=== PATIENT | female | born 1995 | race Caucasian/White ===

== ENCOUNTER 2016-05-15 17:16 | Emergency (ER) | payer MEDICAID, OTHER ==
[2016-05-15 18:10] LABS: RBC URINE 14 /hpf (0-3); URINE BACTERIA MOD (<OCC); URINE BILIRUBIN NEGATIVE (NEGATIVE); URINE BLOOD 2+ (NEGATIVE); URINE COLOR Yellow (YELLOW); URINE GLUCOSE (UA) NORMAL (Normal); URINE KETONE NEGATIVE (NEGATIVE); URINE LEUKOCYTE ESTERASE 3+ Leu/uL (Negative); URINE PROTEIN 1+ mg/dL (NEGATIVE); URINE UROBILINOGEN NORMAL mg/dL (0.2-1.0); WBC CLUMPS FEW /hpf; WBC URINE 269 /hpf (0-5)
[2016-05-15] MEDS ORDERED: Sodium Chloride 0.9% 1,000 ML IV ONE (19:27)
[2016-05-15] MEDS ORDERED: Sodium Chloride 0.9% 1,000 ML ONE (19:46)
[2016-05-15 19:52] LABS: BASO # 0.1 K/uL (0.0-0.2); BASO % 0.3 % (0.0-2.0); EOS % 0.1 % (0.0-4.0); HEMATOCRIT 38.1 % (34.0-47.0); LYMPH # 1.9 K/uL (1.0-4.3); MEAN CELL VOLUME 81.9 fL (81.0-99.0); MEAN CORPUSCULAR HEMOGLOBIN 26.5 pg (27.0-31.0); MEAN CORPUSCULAR HGB CONC 32.3 g/dL (33.0-37.0); MEAN PLATELET VOLUME 9.3 fL (7.2-11.7); MONO % 5.3 % (0.0-10.0); RED CELL DISTRIBUTION WIDTH 13.3 % (11.5-14.5); WHITE BLOOD COUNT 18.7 K/uL (4.8-10.8)
[2016-05-15 20:04] LABS: CHLORIDE 98 mmol/L (98-107); POTASSIUM 4.2 mmol/L (3.6-5.2); SODIUM 140 mmol/L (132-148)
[2016-05-15 20:06] LABS: BILIRUBIN,TOTAL 0.7 mg/dL (0.2-1.3); GFR AFRICAN-AMERICAN > 60
[2016-05-15 20:07] LABS: ALB/GLOB RATIO 1.2 (1.0-2.1); ALKALINE PHOSPHATASE 81 U/L (38-126); ALT/SGPT 13 U/L (9-52); AST/SGOT 22 U/L (14-36); BLOOD UREA NITROGEN 6 mg/dL (7-17); CALCIUM 9.3 mg/dl (8.6-10.4); CARBON DIOXIDE 23 mmol/L (22-30); GLUCOSE,RANDOM 85 mg/dL (65-105); TOTAL PROTEIN 8.6 g/dL (6.3-8.3)
[2016-05-15 21:05] VITALS: RESP 18
--- NOTE | 2016-05-15 21:10 | CT ---
EXAM: CT Abdomen and Pelvis Without Intravenous Contrast. CLINICAL HISTORY: 20 years old, female; Pain; Abdominal pain; Flank; Right; Additional info: Rlq/right flank pain TECHNIQUE: Axial computed tomography images of the abdomen and pelvis without intravenous contrast. This CT exam was performed using one or more of the following dose reduction techniques: automated exposure control, adjustment of the mA and/or kV according to patient size, and/or use of iterative reconstruction technique. Coronal and sagittal reformatted images were created and reviewed. COMPARISON: CR - ABDOMEN (FLAT PLATE) 1VIEW 12/26/2014 4:44:02 AM FINDINGS: Lower thorax: No acute findings. ABDOMEN: Liver: Unremarkable. Gallbladder and bile ducts: No calcified stones. No ductal dilation. Pancreas: Unremarkable. No ductal dilation. Spleen: No splenomegaly. Adrenals: No mass. Kidneys and ureters: No renal calculi. No hydronephrosis. Stomach and bowel: No definite mural thickening. No obstruction. Appendix: No definite findings to suggest acute appendicitis. PELVIS: Bladder: Unremarkable. No stones. Reproductive: Unremarkable as visualized. ABDOMEN and PELVIS: Intraperitoneal space: Small free fluid within pelvis. No free air. Bones/joints: No acute fracture. Soft tissues: Unremarkable. Vasculature: Unremarkable. No abdominal aortic aneurysm. Lymph nodes: No pathologically enlarged lymph nodes. IMPRESSION: 1. No CT evidence of urolithiasis. 2. Incidental/non-acute findings are described above.
--- NOTE | 2016-05-15 21:52 | C.PDOC ---
Time Seen by Provider: 05/15/16 19:19 Chief Complaint (Nursing): Abdominal Pain History Per: Patient, Family Onset/Duration Of Symptoms: Days (3), Waxing/Waning Current Symptoms Are (Timing): Still Present Severity: Moderate Location Of Pain/Discomfort: RUQ, RLQ Radiation Of Pain To:: Back, Flank Quality Of Discomfort: "Pain" Associated Symptoms: Nausea Exacerbating Factors: None Alleviating Factors: None Additional History Per: Prior Records Past Medical History Reviewed: Historical Data, Nursing Documentation, Vital Signs Vital Signs: Last Vital Signs Temp 98.3 F 05/15/16 21:03 Pulse 104 H 05/15/16 21:03 Resp 18 05/15/16 21:03 BP 105/63 05/15/16 21:03 Pulse Ox 100 05/15/16 21:03 - Medical History PMH: No Chronic Diseases Surgical History: No Surg Hx Family History: States: Unknown Family Hx - Social History Hx Tobacco Use: No Hx Alcohol Use: No Hx Substance Use: No - Immunization History Hx Tetanus Toxoid Vaccination: No Hx Influenza Vaccination: No Hx Pneumococcal Vaccination: No Review Of Systems Except As Marked, All Systems Reviewed And Found Negative. Constitutional: Negative for: Fever, Weakness Cardiovascular: Negative for: Chest Pain Respiratory: Negative for: Shortness of Breath Gastrointestinal: Positive for: Abdominal Pain. Negative for: Vomiting, Diarrhea Genitourinary: Positive for: Frequency. Negative for: Vaginal Discharge, Vaginal Bleeding Musculoskeletal: Positive for: Back Pain. Negative for: Neck Pain Skin: Negative for: Rash Neurological: Negative for: Weakness, Numbness, Seizures, Altered Mental Status Physical Exam - Physical Exam Appears: Non-toxic, No Acute Distress Skin: Normal Color, Warm, Dry, No Rash Head: Atraumatic, Normacephalic Eye(s): bilateral: PERRL, EOMI Neck: Normal ROM, Supple Cardiovascular: Rhythm Regular Respiratory: Normal Breath Sounds, No Accessory Muscle Use Gastrointestinal/Abdominal: Soft, Tenderness (mild right sided), No Distention, No Guarding, No Rebound Back: CVA Tenderness (right) Extremity: Normal ROM Neurological/Psych: Oriented x3, Normal Motor, Normal Sensation ED Course And Treatment - Laboratory Results Result Diagrams: 05/15/16 19:46 05/15/16 19:46 Lab Interpretation: Abnormal Interpretation Of Abnormal: UTI. Leukocytosis. Urine POC: Negative O2 Sat by Pulse Oximetry: 100 Pulse Ox Interpretation: Normal - CT Scan/US CT abd/pelv Other Rad Studies (CT/US): Read By Radiologist, Radiology Report Reviewed CT/US Interpretation: IMPRESSION: 1. No CT evidence of urolithiasis. 2. Incidental/non-acute findings are described above Progress Note: Pt feels much better and wants to go home. No abdominal pain or tenderness. Only some right CVA tenderness is still present. Reassessment Condition: Improved Progress - Interventions Interventions:: Observation, Intravenous fluid - Medications Administered Intravenous: NSAID - Data Reviewed Data Reviewed: Lab, Diagnostic imaging, Old records - Patient Status Patient status: Mostly improved - Continuity of Care Discussed patient case with:: Patient, Family-HIPPA compliant, ED Nurse - Patient Plan Patient Plan: Discharge, F/U with PCP Disposition Counseled Patient/Family Regarding: Studies Performed, Diagnosis, Need For Followup, Rx Given - Disposition Referrals: Quique Lee MD [Staff Provider] - Disposition: HOME/ ROUTINE Disposition Time: 21:54 Condition: IMPROVED Additional Instructions: Drink plenty of fluids. Follow up with your doctor within 1-2 days. Return to the ER if you develop fever, vomiting, abdominal pain returns, worsening of symptoms or if you have any other concerns. Prescriptions: Ciprofloxacin [Cipro] 1 tab PO BID #14 tab Instructions: Acute Pyelonephritis (ED) - Clinical Impression Clinical Impression: Acute pyelonephritis
[2016-05-15 22:05] VITALS: BP 97/63; PULSE 105; TEMP 98.4; O2SAT 99
== END 2016-05-15 22:04 | disposition home or self-care (01) ==
LOC: C.ER 17:16
DX: N10 Acute pyelonephritis (principal)
CPT/HCPCS: 74176; 80053; 81001; 83690; 84703; 85025; 87086; 87181; 96361; 96374; 99285; J1885; J7040

== ENCOUNTER 2017-10-09 04:12 | Inpatient (IN) | payer MEDICAID ==
[2017-10-09 05:51] VITALS: BMI 23.8
[2017-10-09] MEDS ORDERED: Oxytocin 30 UNIT 30 UNITS/500 ML BAG IV ONE ×2 (06:16→08:40)
--- NOTE | 2017-10-09 06:35 | OBHP ---
Datetime: 10/09/2017 05:45 IP Adm Impression: Term, intrauterine ; Intact Membranes IP Admit Plan: Admit to unit; Initiate labor protocol Admit Comment, IP Provider: 22 yo female G1 with an IUP at 40 6/7 weeks and scheduled for IOL on 09/19 3 for postdates Pt presented with ? leaking of fluid since 1700 last PM and UC's also since that time with mild sp otting. Admits to adequate FM. GBS Negative. O + and uneventful Will admit in labor and start Pitocin for Augmentation Anticipate a vaginal delivery Pelvic Type - PN: Adequate Extremities - PN: Normal Abdomen - PN: Normal Back - PN: Normal Breast - PN: Not Done Lungs - PN: Normal Heart - PN: Normal Thyroid - PN: Normal Neurologic - PN: Normal HEENT - PN: Normal General - PN: Normal Presentation-Admit: Vertex FHR - Baseline A Provider: 130 Membranes, Provider: Intact Contraction Comments Provider: Q 2-3 Gestation - Est Wks by US: 40.6 Pool Provider: Negative Nitrazine Provider: Negative IP Hx Assessment: Care Records reviewed EGA AdmitDate IP: 40.6 Vital Signs Provider: Reviewed; Within Normal Limits IP Chief Complaint: Uterine contractions; Suspected ruptured membranes; Maternal discomfort NICHD Variability Prov Fetus A: Moderate 6-25bpm NICHD Accel Fetus A IP Provider: 10X10 FHR Category Provider Fetus A: Category I NICHD Decel Fetus A IP Provider: None Dilatation, Provider: Ftp Effacement, Provider: 90 Station, Provider: -1 Genitourinary Exam: Normal DTRs - PN: Normal
--- NOTE | 2017-10-09 06:37 | OBADHP ---
Datetime: 10/09/2017 06:34 Pelvic Type - PN: Adequate Extremities - PN: Normal Abdomen - PN: Normal Back - PN: Normal Breast - PN: Not Done Lungs - PN: Normal Heart - PN: Normal Thyroid - PN: Normal Neurologic - PN: Normal HEENT - PN: Normal General - PN: Normal Membranes, Provider: Intact Contraction Comments Provider: 2-3 mins IP Chief Complaint: Uterine contractions FHR Category Provider Fetus A: Category I Genitourinary Exam: Normal DTRs - PN: Normal EGA AdmitDate IP: 40.6 IP Adm Impression: Term, intrauterine ; Active labor; Intact Membranes IP Admit Plan: Admit to unit; Initiate labor protocol Datetime: 10/09/2017 05:45 Admit Comment, IP Provider: 22 yo female G1 with an IUP at 40 6/7 weeks and scheduled for IOL on 09/19 3 for postdates Pt presented with ? leaking of fluid since 1700 last PM and UC's also since that time with mild sp otting. Admits to adequate FM. GBS Negative. O + and uneventful Will admit in labor and start Pitocin for Augmentation Anticipate a vaginal delivery Presentation-Admit: Vertex FHR - Baseline A Provider: 130 Gestation - Est Wks by US: 40.6 Pool Provider: Negative Nitrazine Provider: Negative IP Hx Assessment: Care Records reviewed Vital Signs Provider: Reviewed; Within Normal Limits NICHD Variability Prov Fetus A: Moderate 6-25bpm NICHD Accel Fetus A IP Provider: 10X10 NICHD Decel Fetus A IP Provider: None Dilatation, Provider: Ftp Effacement, Provider: 90 Station, Provider: -1
[2017-10-09 07:22] LABS: BASO # 0.1 K/uL (0.0-0.2); BASO % 0.8 % (0.0-2.0); EOS # 0.1 K/uL (0.0-0.7); EOS % 0.9 % (0.0-4.0); HEMOGLOBIN 9.7 g/dL (11.0-16.0); LYMPH # 2.3 K/uL (1.0-4.3); LYMPH % 18.5 % (20.0-40.0); MEAN CELL VOLUME 75.1 fL (81.0-99.0); MEAN CORPUSCULAR HEMOGLOBIN 24.4 pg (27.0-31.0); MEAN CORPUSCULAR HGB CONC 32.5 g/dL (33.0-37.0); MEAN PLATELET VOLUME 10.4 fL (7.2-11.7); MONO # 0.9 K/uL (0.0-0.8); MONO % 7.3 % (0.0-10.0); NEUT # 8.8 K/uL (1.8-7.0); NEUT % 72.5 % (50.0-75.0); NRBC % 0.3 % (0.0-2.0); RBC 3.96 Mil/uL (3.80-5.20); RED CELL DISTRIBUTION WIDTH 15.1 % (11.5-14.5); WHITE BLOOD COUNT 12.2 K/uL (4.8-10.8)
[2017-10-09 07:28] LABS: ALB/GLOB RATIO 1.1 (1.0-2.1); ALBUMIN 3.5 g/dL (3.5-5.0); ALT/SGPT 9 U/L (9-52); AST/SGOT 14 U/L (14-36); BLOOD UREA NITROGEN 7 mg/dL (7-17); CALCIUM 8.7 mg/dl (8.6-10.4); GFR NON-AFRICAN AMERICAN > 60
[2017-10-09 08:53] LABS: SQUAMOUS EPITHIAL 14 /hpf (0-5); URINE BACTERIA RARE (<OCC); URINE BILIRUBIN NEGATIVE (NEGATIVE); URINE BLOOD 1+ (NEGATIVE); URINE CLARITY Hazy (Clear); URINE COLOR Yellow (YELLOW); URINE GLUCOSE (UA) NORMAL (Normal); URINE LEUKOCYTE ESTERASE NEG Leu/uL (Negative); URINE PROTEIN NEGATIVE (NEGATIVE); URINE UROBILINOGEN NORMAL mg/dL (0.2-1.0)
[2017-10-09] MEDS ORDERED: Bupivacaine HCl/FentaNYL Cit 100 ML EPI ONE (10:16)
--- NOTE | 2017-10-09 13:24 | OBHP ---
Datetime: 10/09/2017 06:34 IP Adm Impression: Term, intrauterine ; Active labor; Intact Membranes IP Admit Plan: Admit to unit; Initiate labor protocol Admit Comment, IP Provider: 22 yo female G1 with an IUP at 40 6/7 weeks and scheduled for IOL on 09/19 3 for postdates Pt presented with ? leaking of fluid since 1700 last PM and UC's also since that time with mild sp otting. Admits to adequate FM. GBS Negative. O + and uneventful Will admit in labor and start Pitocin for Augmentation Anticipate a vaginal delivery Requesting an Epidural and counseled about it and all of her questions answered Anesthesia consulted Pelvic Type - PN: Adequate Extremities - PN: Normal Abdomen - PN: Normal Back - PN: Normal Breast - PN: Not Done Lungs - PN: Normal Heart - PN: Normal Thyroid - PN: Normal Neurologic - PN: Normal HEENT - PN: Normal General - PN: Normal Presentation-Admit: Vertex FHR - Baseline A Provider: 150 Membranes, Provider: Intact Contraction Comments Provider: 2-3 mins Gestation - Est Wks by US: 40.6 EGA AdmitDate IP: 40.6 IP Indication for Induction: Not Applicable IP Chief Complaint: Uterine contractions NICHD Variability Prov Fetus A: Moderate 6-25bpm NICHD Accel Fetus A IP Provider: 10X10 FHR Category Provider Fetus A: Category I NICHD Decel Fetus A IP Provider: None Dilatation, Provider: FTP Effacement, Provider: 90 Station, Provider: -2 Genitourinary Exam: Normal DTRs - PN: Normal
[2017-10-09] MEDS ORDERED: Oxytocin 10 Units/ml Inj ONE (16:06)
[2017-10-09] MEDS ORDERED: Oxycodone/Acetaminophen 5/325 mg Tab PO PRN (18:22)
[2017-10-09] MEDS ORDERED: Benzocaine/Menthol 20%-0.5% Topical Spray (60 ml) TOP PRN (18:22)
[2017-10-09] MEDS ORDERED: Erythromycin 0.5% Ophth Oint 1 APPLIC/3.5 G ONE (18:27)
[2017-10-09] MEDS ORDERED: Phytonadione 1 mg/0.5 ml Inj (Neonatal) ONE (18:27)
[2017-10-10 00:26] VITALS: RESP 20
[2017-10-10 07:53] LABS: BASO # 0.1 K/uL (0.0-0.2); BASO % 0.3 % (0.0-2.0); EOS # 0.1 K/uL (0.0-0.7); EOS % 0.4 % (0.0-4.0); HEMOGLOBIN 8.7 g/dL (11.0-16.0); LYMPH # 2.8 K/uL (1.0-4.3); LYMPH % 12.7 % (20.0-40.0); MEAN CELL VOLUME 75.5 fL (81.0-99.0); MEAN CORPUSCULAR HEMOGLOBIN 24.4 pg (27.0-31.0); MEAN CORPUSCULAR HGB CONC 32.3 g/dL (33.0-37.0); MEAN PLATELET VOLUME 9.3 fL (7.2-11.7); MONO # 1.6 K/uL (0.0-0.8); MONO % 7.3 % (0.0-10.0); NEUT # 17.3 K/uL (1.8-7.0); NEUT % 79.3 % (50.0-75.0); NRBC % 0.1 % (0.0-2.0); RBC 3.57 Mil/uL (3.80-5.20); RED CELL DISTRIBUTION WIDTH 14.9 % (11.5-14.5)
[2017-10-10 07:55] LABS: WHITE BLOOD COUNT 21.8 K/uL (4.8-10.8)
--- NOTE | 2017-10-10 08:44 | OBPPN ---
Datetime: 10/10/2017 08:39 PP Pain Prov: Within normal limits PP Nausea Prov: Denies PP Flatus Prov: Yes PP BM Prov: No PP Breasts Prov: Normal PP Heart Prov: Normal PP Lungs Prov: Normal PP Abdomen/Uterus Prov: Normal PP Vulva/Perineum Prov: Normal PP Extremities Prov: Normal PP Progress Prov: Normal PP Comments Phys Exam Prov: ABD: Soft , NT, Urerus firm and below umbilicus PP Impression Prov: Normal progression PP Plan Prov: Continue present management; Antibiotic therapy PP Progress Note Prov: PPD #1 Doing well with put complaints. Temp of 100.5 at 12:05 am Elevated WBC count. Plan: Start Ampicillin for possible infection Continue post care IP PP Procedures: None Vital Signs Provider PP: Reviewed; Within Normal Limits
[2017-10-10] MEDS ORDERED: SODIUM CHLORIDE 0.9% IVPB SCH (09:00)
[2017-10-10] MEDS ORDERED: AMPICILLIN IVPB SCH (09:00)
[2017-10-10] MEDS ORDERED: AMPicillin 2 GM in Sodium Chloride 0.9% 100 ML IVPB SCH (09:26)
[2017-10-10] MEDS ORDERED: Lactated Ringer's 500 ML IV ONE (09:26)
[2017-10-10] MEDS: Multiple Vitamins Tab PO SCH (10:33)
[2017-10-10] MEDS: NS IVPB SCH ×3 (10:58→22:21)
[2017-10-10] MEDS: AMPICILLIN IVPB SCH ×3 (10:58→22:21)
[2017-10-11 00:34] VITALS: O2SAT 98
[2017-10-11] MEDS ORDERED: AMPicillin 2 GM in Sodium Chloride 0.9% 100 ML IVPB SCH (03:30)
[2017-10-11 08:43] VITALS: BP 105/66; PULSE 77; TEMP 98
--- NOTE | 2017-10-11 08:45 | OBDCSUM ---
Datetime: 10/11/2017 08:42 Discharged to, Provider: Home Follow up at, Provider: 4-6wks/prn if sooner Disch Instr Activity: Normal activity Disch Instr Diet: Regular Discharge Instructions, Provider: Routine instructions given Discharge Diagnosis, Provider: Term Delivered Discharge Time: 10/11/2017 08:42 Follow up in weeks, Provider: ob clinic Disch Activity Restrictions: No sexual activity; Nothing in vagina - [place], tampons, douche Discharge Comment, Provider: rx feso4 bid pt advised to take w/ oj motrin otc for pain kegels benefits of d/w pt. Contraception after Delivery: Undecided
--- NOTE | 2017-10-11 08:45 | OBPPN ---
Datetime: 10/11/2017 08:38 PP Pain Prov: Within normal limits PP Nausea Prov: Present PP Flatus Prov: Yes PP BM Prov: No PP Breasts Prov: Normal PP Heart Prov: Normal PP Lungs Prov: Normal PP Abdomen/Uterus Prov: Normal PP Extremities Prov: Normal PP Progress Prov: Normal PP Impression Prov: Normal progression PP Plan Prov: Discharge PP Progress Note Prov: s: tolerating reg diet. +flatus. pain controlled w/ motrin i: s/p doing well p: repeat cbc prior to d/c rx feso4 bid pt advised to take w/ oj motrin otc for pain kegels benefits of d/w pt. IP PP Procedures: None Vital Signs Provider PP: Within Normal Limits
[2017-10-11 09:53] LABS: BASO # 0.1 K/uL (0.0-0.2); BASO % 0.6 % (0.0-2.0); EOS # 0.2 K/uL (0.0-0.7); EOS % 1.3 % (0.0-4.0); HEMOGLOBIN 9.9 g/dL (11.0-16.0); LYMPH # 2.8 K/uL (1.0-4.3); LYMPH % 15.9 % (20.0-40.0); MEAN CELL VOLUME 75.8 fL (81.0-99.0); MEAN CORPUSCULAR HEMOGLOBIN 24.8 pg (27.0-31.0); MEAN CORPUSCULAR HGB CONC 32.7 g/dL (33.0-37.0); MEAN PLATELET VOLUME 9.4 fL (7.2-11.7); MONO # 1.4 K/uL (0.0-0.8); MONO % 8.2 % (0.0-10.0); NEUT # 13.2 K/uL (1.8-7.0); NRBC % 0.1 % (0.0-2.0); RBC 4.01 Mil/uL (3.80-5.20); RED CELL DISTRIBUTION WIDTH 15.3 % (11.5-14.5); WHITE BLOOD COUNT 17.8 K/uL (4.8-10.8)
[2017-10-11] MEDS: Multiple Vitamins Tab PO SCH (10:47)
== END 2017-10-11 19:00 | disposition home or self-care (01) | DRG 373 ==
LOC: C.EROB 04:12 → C.4D 05:16 → C.4M 21:00
PROVIDERS: ADMIT Obstetrics & Gynecology; ATTEND Obstetrics & Gynecology
PROC: 10E0XZZ Delivery of Products of Conception, External Approach (ICD-10-PCS; principal; 2017-10-09)
DX: O48.0 Post-term pregnancy (principal); O99.02 Anemia complicating childbirth; Z3A.41 41 weeks gestation of pregnancy; D72.829 Elevated white blood cell count, unspecified; Z37.0 Single live birth